=== PATIENT | male | born 1960 | race Caucasian/White ===

== ENCOUNTER 2018-02-07 12:58 | Emergency (ER) | payer OTHER ==
[2018-02-07] MEDS: Adacel Vial IM (13:31)
[2018-02-07] MEDS: XYLOCAINE 1% HCL 20 ML MDV IJ (13:33)
[2018-02-07] MEDS: BACIGUENT PACKET TP (13:34)
[2018-02-07] MEDS ORDERED: BACIGUENT PACKET (13:34)
== END 2018-02-07 14:02 | disposition home or self-care (01) ==
LOC: ED 12:58
CPT/HCPCS: 90471

== ENCOUNTER 2018-02-13 09:49 | Emergency (ER) | payer OTHER ==
--- NOTE | 2018-02-13 09:59 | ERPHSYRPT ---
- History of Present Illness Time Seen by Provider: 02/13/18 09:59 Source: patient Exam Limitations: no limitations Physician History: The patient is a 57-year-old male who returns to the ER for removal of stitches from his left hand that were placed on February 07, 2018 (7 days ago). The patient was told to return to his doctor in 5-7 days for suture removal. He had cut his left hand on a piece of metal while working for [employer]. He's had no problems with the suture site. Timing/Duration: week(s) (1) Location: hands (left) Possible Causes: other (sharp metal object with suture placement) Allergies/Adverse Reactions: Sulfa (Sulfonamide Antibiotics) Allergy (Verified 02/07/18 13:22) Hx Influenza Vaccination/Date Given: No - Review of Systems Constitutional: No Fever, No Chills Eyes: No Symptoms Ears, Nose, & Throat: No Symptoms Respiratory: No Cough, No Dyspnea Cardiac: No Chest Pain, No Edema, No Syncope Abdominal/Gastrointestinal: No Abdominal Pain, No Nausea, No Vomiting, No Diarrhea Genitourinary Symptoms: No Dysuria Musculoskeletal: No Back Pain, No Neck Pain Skin: Other (suture removal) Neurological: No Dizziness, No Focal Weakness, No Sensory Changes Psychological: No Symptoms Endocrine: No Symptoms Hematologic/Lymphatic: No Symptoms Immunological/Allergic: No Symptoms All Other Systems: Reviewed and Negative - Past Medical History Pertinent Past Medical History: Yes Cardiac History: Hypertension - Past Surgical History Past Surgical History: No - Social History Smoking Status: Never smoker Drug Use: none - Physical Exam General Appearance: no apparent distress, alert Eye Exam: PERRL/EOMI, eyes nml inspection Ears, Nose, Throat Exam: normal ENT inspection, pharynx normal, moist mucous membranes Neck Exam: normal inspection, non-tender, supple, full range of motion Rectal Exam: not done Extremity Exam: normal inspection, normal range of motion Neurologic Exam: alert, oriented x 3, cooperative, normal mood/affect, sensation nml, No motor deficits Skin Exam: laceration (healing laceration to left hand with intact sutures) SpO2 Interpretation: normal - Departure Time of Disposition: 10:03 Departure Disposition: Home Clinical Impression: Encounter for re-check of laceration wound Condition: Stable Critical Care Time: No Referrals: ALLAN MCCLENDON [Primary Care Provider] - Additional Instructions: Return next Tuesday or for suture removal.
[2018-02-13 10:05] VITALS: BP 144/85; PULSE 61; O2SAT 97
== END 2018-02-13 10:11 | disposition home or self-care (01) ==
LOC: ED 09:49
DX: Z51.89 Encounter for other specified aftercare (principal)
CPT/HCPCS: 99283

== ENCOUNTER 2018-02-21 09:31 | Emergency (ER) | payer OTHER ==
--- NOTE | 2018-02-21 10:12 | ERPHSYRPT ---
- History of Present Illness Time Seen by Provider: 02/21/18 09:57 Source: patient Exam Limitations: no limitations Physician History: The patient is a right-handed 57-year-old male who comes in for suture removal for a laceration repair to his left hand performed on 02/07/2018. He is had no trouble at the suture site. There is been no redness no drainage. Timing/Duration: day(s) (12), sudden Location: hands (left) Associated Symptoms: denies symptoms Allergies/Adverse Reactions: Sulfa (Sulfonamide Antibiotics) Allergy (Verified 02/07/18 13:22) Hx Tetanus, Diphtheria Vaccination/Date Given: Yes Hx Influenza Vaccination/Date Given: No - Review of Systems Constitutional: No Fever, No Chills Eyes: No Symptoms Ears, Nose, & Throat: No Symptoms Respiratory: No Cough, No Dyspnea Cardiac: No Chest Pain, No Edema, No Syncope Abdominal/Gastrointestinal: No Abdominal Pain, No Nausea, No Vomiting, No Diarrhea Genitourinary Symptoms: No Dysuria Musculoskeletal: No Back Pain, No Neck Pain Skin: Other (suture removal) Neurological: No Dizziness, No Focal Weakness, No Sensory Changes Psychological: No Symptoms Endocrine: No Symptoms Hematologic/Lymphatic: No Symptoms Immunological/Allergic: No Symptoms All Other Systems: Reviewed and Negative - Past Medical History Pertinent Past Medical History: Yes Cardiac History: Hypertension - Past Surgical History Past Surgical History: No - Social History Smoking Status: Never smoker Drug Use: none - Physical Exam General Appearance: no apparent distress, alert Eye Exam: PERRL/EOMI, eyes nml inspection Rectal Exam: not done Neurologic Exam: alert, oriented x 3, cooperative, normal mood/affect, sensation nml, No motor deficits Skin Exam: normal color, warm, dry, other (5 ethilon sutures to left hand; no erythema; no drainage; healing laceration) SpO2 Interpretation: normal Oxygen Delivery: Room Air - Progress Progress: improved Progress Note: 02/21/18 10:16 performed suture removal of 5 sutures to left hand. - Departure Time of Disposition: 10:16 Departure Disposition: Home Clinical Impression: Visit for suture removal Condition: Stable Critical Care Time: No Referrals: ALLAN MCCLENDON [Primary Care Provider] - Additional Instructions: You had 5 sutures removed from her left hand today. Your wound is well-healed at this time.
[2018-02-21 10:19] VITALS: BP 142/86; PULSE 52; O2SAT 96
== END 2018-02-21 10:21 | disposition home or self-care (01) ==
LOC: ED 09:31
DX: Z48.02 Encounter for removal of sutures (principal)
CPT/HCPCS: 99283